=== PATIENT | male | born 1935 | race Caucasian/White ===

== ENCOUNTER 2017-09-28 10:30 | Outpatient (CLI) | payer MEDICARE ==
[2017-09-28 10:29] VITALS: BP 138/73
[~2017-09-28 10:30] MED LIST: AMLO2.5T2 PO; ATOR40TA PO; CHOL100046 PO; HYDR-4069 PO
== END 2017-09-28 11:45 | disposition home or self-care (01) ==
LOC: ORTHO 10:30
PROVIDERS: ATTEND Nurse Practitioner Family
DX: S62.616D Displaced fracture of proximal phalanx of right little finger, subsequent encounter for fracture with routine healing (principal); S62.614D Displaced fracture of proximal phalanx of right ring finger, subsequent encounter for fracture with routine healing; M85.841 Other specified disorders of bone density and structure, right hand; M25.841 Other specified joint disorders, right hand; E78.00 Pure hypercholesterolemia, unspecified; G89.29 Other chronic pain; I10 Essential (primary) hypertension; X58.XXXD Exposure to other specified factors, subsequent encounter
CPT/HCPCS: 29125; 73130

== ENCOUNTER 2017-10-26 10:30 | Outpatient (CLI) | payer MEDICARE ==
[2017-10-26 10:37] VITALS: BP 143/69
== END 2017-10-26 11:00 | disposition home or self-care (01) ==
LOC: ORTHO 10:30
PROVIDERS: ATTEND Nurse Practitioner Family
DX: S62.609D Fracture of unspecified phalanx of unspecified finger, subsequent encounter for fracture with routine healing (principal); E78.00 Pure hypercholesterolemia, unspecified; G89.29 Other chronic pain; I10 Essential (primary) hypertension; X58.XXXD Exposure to other specified factors, subsequent encounter
CPT/HCPCS: 73130

== ENCOUNTER 2019-02-22 08:31 | Outpatient (CLI) | payer MEDICARE ==
[~2019-02-22] VITALS: Ht 172.7 cm; Wt 86.2 kg
[2019-02-22 09:16] LABS: TOTAL HEMOGLOBIN 16.7 G/dl (14.0-18.0)
[2019-02-22] MEDS ORDERED: albuterol 2.5 MG/3 ML nebule NEB ONE (09:30)
== END 2019-02-22 23:59 | disposition home or self-care (01) ==
LOC: RT 08:31
PROVIDERS: ATTEND Internal Medicine
DX: J44.9 Chronic obstructive pulmonary disease, unspecified (principal); R94.2 Abnormal results of pulmonary function studies; Z87.891 Personal history of nicotine dependence; Z79.899 Other long term (current) drug therapy
CPT/HCPCS: 85018; 94060; 94727; 94729; 94760